=== PATIENT | male | born 1960 | race Caucasian/White ===

== ENCOUNTER 2022-10-31 13:37 | Emergency (ER) | payer OTHER ==
[2022-10-31] MEDS ORDERED: Sodium Chloride 0.9% 10 ML Syringe FLUSH PRN (13:49)
[2022-10-31 14:58] LABS: ESTIMATED GFR 98 mL/min (>60)
[2022-10-31] MEDS ORDERED: Iopamidol 755 Mg/ML 100 ML Bottle IVPUSH ONE (15:32)
[2022-10-31] MEDS ORDERED: Sodium Chloride 0.9% 10 ML Syringe FLUSH ONE (15:32)
[2022-10-31] MEDS ORDERED: Sodium Chloride 0.9% 100 ML IV SCH (15:45)
[2022-10-31 17:09] LABS: CORONAVIRUS COVID-19 NAA NEGATIVE (NEGATIVE)
== END 2022-10-31 19:16 | disposition home or self-care (01) ==
LOC: JD.ED 13:37
DX: R07.89 Other chest pain (principal); M25.512 Pain in left shoulder; E78.00 Pure hypercholesterolemia, unspecified; I10 Essential (primary) hypertension; E11.9 Type 2 diabetes mellitus without complications; Z20.822 Contact with and (suspected) exposure to COVID-19
CPT/HCPCS: 0241U; 36415; 71046; 71275; 80053; 83880; 84484; 85025; 85379; 93971; 99285; J3490; Q9967